=== PATIENT | female | born 1960 | race Caucasian/White ===

== ENCOUNTER 2016-08-09 17:10 | Emergency (ER) | payer OTHER ==
[~2016-08-09] VITALS: Ht 165.1 cm; Wt 74.4 kg
[~2016-08-09 17:10] MED LIST: BUPR100T13 PO; CLON2TAB4 PO; DULO60CA41 PO; LEVO200T8 PO; QUET50TA13 PO; SULF1TAB48 PO; TRAZ-126 PO
[2016-08-09 18:04] VITALS: BP 98/64; PULSE 101; RESP 18; TEMP 98.4; O2SAT 99
--- NOTE | 2016-08-09 18:04 | NUR ---
CAITY Miranda at bedside for evaluation Addendum: 08/09/16 at 2222 by JOSE RAFAEL Patient evaluated in triage room by Ruth BAINS
--- NOTE | 2016-08-09 18:07 | NUR ---
Pt to bed 7, report given to DEANNE Pham
--- NOTE | 2016-08-09 18:10 | NUR ---
Senior Principal Process Engineer at bedside for blood draw. Patient identified x 2
--- NOTE | 2016-08-09 18:12 | NUR ---
Patient brought to ER by sister C/O suprapubic abdominal pain 02/25. Patient C/O nausea and mild diarrhea with traces of blood. Denies vomiting/constipation. Denies fever. AAOx4, unlabored breathing, normoactive bowel sounds. No signs of acute distress.
[2016-08-09] MEDS ORDERED: ONDANSETRON HCL 4 MG/2 ML VIAL IVP ONE (18:15)
[2016-08-09] MEDS ORDERED: MORPHINE 4 MG/ML INJ. SYRINGE IVP ONE (18:15)
--- NOTE | 2016-08-09 18:15 | NUR ---
# 22 gauge angiocath placed to left hand. Use of asceptic technique. Opsite placed over site. Blood return noted. Flushed with 10 cc of normal saline. No evidence of infiltration noted. Patient tolerated well.
[2016-08-09 18:24] LABS: BASOPHILS % (AUTO) 0.5 % (0.0-2.0); EOSINOPHILS # (AUTO) 0.3 K/uL (0.0-0.4); EOSINOPHILS % (AUTO) 4.1 % (0.0-4.0); HEMATOCRIT 29.3 % (36-48); HEMOGLOBIN 9.6 g/dL (12.0-16.0); LYMPHOCYTES # (AUTO) 2.6 K/uL (1.0-5.5); LYMPHOCYTES % (AUTO) 31.5 % (20.5-51.5); MEAN CORPUSCULAR HEMOGLOBIN 27 pg (27-31); MEAN CORPUSCULAR HGB CONC 33 % (32-36); MEAN CORPUSCULAR VOLUME 83 fL (79.0-98.0); MONOCYTES # (AUTO) 0.6 K/uL (0.0-1.0); MONOCYTES % (AUTO) 7.4 % (1.7-9.3); NEUTROPHILS # (AUTO) 4.8 K/uL (1.8-7.7); NEUTROPHILS % (AUTO) 56.5 % (40.0-70.0); PLATELET COUNT (AUTO) 287 K/uL (130-430); RED BLOOD CELL COUNT(AUTO) 3.52 MIL/uL (4.2-6.2); RED CELL DISTRIBUTION WIDTH 12.5 % (9.0-15.0); WHITE BLOOD COUNT (AUTO) 8.3 K/uL (4.8-10.8)
[2016-08-09 18:38] LABS: BILIRUBIN,URINE NEGATIVE (NEGATIVE); BLOOD, URINE 1+ (NEGATIVE); CLARITY/URINE CLOUDY (CLEAR); COLOR,URINE YELLOW (YELLOW); GLUCOSE,URINE NEGATIVE (NEGATIVE); KETONES,URINE NEGATIVE (NEGATIVE); LEUKOCYTE ESTERASE ,URINE 3+ (NEGATIVE); NITRITE, URINE NEGATIVE (NEGATIVE); PH,URINE 6.5 (5.0-8.0); PROTEIN URINE NEGATIVE (NEGATIVE); UROBILINOGEN,URINE 0.2 (0.2-1.0)
[2016-08-09 18:42] LABS: CALCIUM 9.8 mg/dL (8.4-11.0); CREATININE 0.89 mg/dL (0.55-1.30); POTASSIUM 4.1 mmol/L (3.5-5.1)
[2016-08-09 18:47] LABS: ALBUMIN 2.9 g/dL (3.4-4.8); TOTAL BILIRUBIN 0.3 mg/dL (0.0-1.0)
[2016-08-09 18:53] LABS: BACTERIA,URINE MODERATE /HPF (None Seen); MUCUS,URINE None Seen /LPF (None Seen); URINE AMORPHOUS URATE 2+ /HPF (None Seen)
[2016-08-09] MEDS ORDERED: PIPERACILLIN/TAZO 3.375 GM in NS 50 ML IV ONE (19:15)
[2016-08-09] MEDS ORDERED: HYDROmorphone 1 MG INJ. 1 MG/ML AMPUL IVP ONE ×2 (19:30→20:15)
[2016-08-09] MEDS ORDERED: PIPERACILLIN/TAZOBACTAM 3.375 GM/VIAL (ZOSYN) IV ONE (19:30)
--- NOTE | 2016-08-09 19:39 | NUR ---
Patient resting, no signs of acute distress. Sister at bedside
--- NOTE | 2016-08-09 20:14 | NUR ---
Patient C/O pelvic pain 01/25. ER GROUP EXERCISE CLASS INSTRUCTOR Ruth manzano
[2016-08-09] MEDS ORDERED: NACL 0.9% 1,000 ML IV ONE (21:00)
--- NOTE | 2016-08-09 21:50 | NUR ---
ER NARA Miranda at bedside discussing plan of care with patient and family.
[2016-08-09 22:12] VITALS: BP 105/54; PULSE 87; RESP 18; TEMP 98.2; O2SAT 99
--- NOTE | 2016-08-09 22:12 | NUR ---
Patient given written and verbal discharge instructions and verbalizes understanding. ER CABIN CLEANING SUPERVISOR Ruth discussed with patient the results and treatment provided. Patient in stable condition. ID arm band removed. IV catheter removed intact and dressing applied, no active bleeding. Rx of cipro, tylenol, citrucel given. Patient educated on pain management and to follow up with PMD. Pain Scale 0/10. Opportunity for questions provided and answered.
--- NOTE | 2016-08-12 09:12 | NUR ---
RECEIVED FINAL URINE CULTURE AND PT WAS GIVEN ANTIBIOTICS THAT THEY ARE SENSITIVE TO. PT RECEIVED CIPRO AND TRIMET/SULFA. NO FURTHER ACTIONS NEEDED.
== END 2016-08-09 22:12 | disposition home or self-care (01) ==
LOC: SED 17:10
DX: K92.1 Melena (principal); R10.13 Epigastric pain; R10.30 Lower abdominal pain, unspecified; Z88.5 Allergy status to narcotic agent; Z79.899 Other long term (current) drug therapy
CPT/HCPCS: 36415; 74176; 80053; 81000; 83690; 85025; 87040; 87086; 87186; 96361; 96365; 96375; 96376; 99285; J1170; J2270; J2405; J2543; J7030

== ENCOUNTER 2016-08-22 15:07 | Emergency (ER) | payer OTHER ==
[~2016-08-22] VITALS: Ht 165.1 cm; Wt 74.8 kg
[2016-08-22 15:07] VITALS: BP 103/69; PULSE 98; RESP 19; TEMP 98.2; O2SAT 99
--- NOTE | 2016-08-22 15:07 | NUR ---
BROUGHT BACK TO BED #7 VIA WHEELCHAIR, PT STATES SHE WOULD LIKE TO REMAIN IN THE WHEELCHAIR AND NOT GET INTO THE BED. REPORT GIVEN TO YRN
--- NOTE | 2016-08-22 15:08 | NUR ---
Pt here for c/o left shoulder pain since yesterday and chronic knee pain s/p knee surgery about 5 years ago. Pt states she takes Percocet at home, but is running out of the medication. Addendum: 08/22/16 at 1556 by [email or web address] Pt denied injury to left shoulder at home.
--- NOTE | 2016-08-22 15:09 | NUR ---
Dr. Freed at bedside assess pt.
[2016-08-22] MEDS ORDERED: KETOROLAC TROMETHAMINE 60 MG/2 ML VIAL IM ONE (15:45)
[2016-08-22 15:47] VITALS: BP 110/70; PULSE 96; RESP 19; TEMP 98.2; O2SAT 100
--- NOTE | 2016-08-22 15:49 | NUR ---
Patient given written and verbal discharge instructions and verbalizes understanding. ER MD discussed with patient the results and treatment provided. Patient in stable condition. ID arm band removed. IV c Rx of given. Patient educated on pain management and to follow up with PMD. Opportunity for questions provided and answered.
== END 2016-08-22 15:47 | disposition home or self-care (01) ==
LOC: SED 15:07
DX: G89.29 Other chronic pain (principal); M25.512 Pain in left shoulder; C80.1 Malignant (primary) neoplasm, unspecified; M85.80 Other specified disorders of bone density and structure, unspecified site; Z91.09 Other allergy status, other than to drugs and biological substances
CPT/HCPCS: 96372; 99283; J1885

== ENCOUNTER 2016-08-28 17:35 | Emergency (ER) | payer OTHER ==
[~2016-08-28] VITALS: Ht 165.1 cm; Wt 73.9 kg
[2016-08-28 17:43] VITALS: BP 120/73; PULSE 89; RESP 18; TEMP 98.6; O2SAT 98
--- NOTE | 2016-08-28 19:50 | NUR ---
Patient to ER bed 8 to gown for evaluation. Side rails up. Report received from Deana ALICEA.
--- NOTE | 2016-08-28 19:51 | NUR ---
Pt in bed 8 with c/o shoulder pain , Dr Boateng aware.
--- NOTE | 2016-08-28 19:57 | NUR ---
ER at bedside examining patient.
[2016-08-28] MEDS ORDERED: NACL 0.9% 1,000 ML IV ONE (20:11)
--- NOTE | 2016-08-28 20:14 | NUR ---
AMBULATED TO BR TOLERATED WELL.
[2016-08-28] MEDS ORDERED: PANTOPRAZOLE SODIUM 40 MG/VIAL (PROTONIX) IVP ONE (20:15)
[2016-08-28] MEDS ORDERED: DIPHENHYDRAMINE INJ 50 MG/ML VIAL IVP ONE (20:15)
[2016-08-28] MEDS ORDERED: KETOROLAC TROMETHAMINE 30 MG VIAL IVP ONE (20:15)
[2016-08-28] MEDS ORDERED: MORPHINE 4 MG/ML INJ. SYRINGE IVP ONE (20:15)
--- NOTE | 2016-08-28 20:25 | NUR ---
Urine specimen collected in ER. Results to be given to ER .
[2016-08-28 20:37] LABS: BILIRUBIN,URINE 1+ (NEGATIVE); CLARITY/URINE HAZY (CLEAR); COLOR,URINE YELLOW (YELLOW); GLUCOSE,URINE NEGATIVE (NEGATIVE); KETONES,URINE NEGATIVE (NEGATIVE); LEUKOCYTE ESTERASE ,URINE 2+ (NEGATIVE); NITRITE, URINE NEGATIVE (NEGATIVE); PROTEIN URINE NEGATIVE (NEGATIVE); UROBILINOGEN,URINE 0.2 (0.2-1.0)
--- NOTE | 2016-08-28 20:38 | NUR ---
Patient transported to radiology via gurney, accompanied by configuration technician.
[2016-08-28 20:51] LABS: BLOOD, URINE TRACE (NEGATIVE)
[2016-08-28 20:53] LABS: BARBITURATE, URINE NEGATIVE (NEG <=200); METHAMPHETAMINES SCREEN,URINE NEGATIVE (NEG <=500); URINE AMPHETAMINE NEGATIVE (NEG <=500)
[2016-08-28 20:54] LABS: BENZODIAZEPINE, URINE POSITIVE (NEG <=150); CANNABINOID, URINE NEGATIVE (NEG <=50); COCAINE, URINE NEGATIVE (NEG <=150); OPIATE, URINE NEGATIVE (NEG <=100); PHENCYCLIDINE SCREEN,URINE NEGATIVE (NEG <=25); UR TRICYCLIC ANTIDEPRESSANTS POSITIVE (NEG <=300); URINE METHADONE NEGATIVE (NEG <=200); URINE OXYCODONE SCREEN POSITIVE (NEG <=100); URINE PROPOXYPHENE SCREEN NEGATIVE (NEG <=300)
[2016-08-28 20:57] LABS: BACTERIA,URINE MANY /HPF (None Seen); WBC,URINE 50-80 /HPF (0-3)
[2016-08-28 20:58] LABS: MUCUS,URINE None Seen /LPF (None Seen)
[2016-08-28 20:59] LABS: YEAST,URINE Moderate /HPF (None Seen)
[2016-08-28 21:13] LABS: BASOPHILS % (AUTO) 0.4 % (0.0-2.0); EOSINOPHILS # (AUTO) 0.4 K/uL (0.0-0.4); EOSINOPHILS % (AUTO) 5.3 % (0.0-4.0); HEMATOCRIT 28.8 % (36-48); HEMOGLOBIN 9.3 g/dL (12.0-16.0); LYMPHOCYTES # (AUTO) 2.1 K/uL (1.0-5.5); LYMPHOCYTES % (AUTO) 30.6 % (20.5-51.5); MEAN CORPUSCULAR HEMOGLOBIN 27 pg (27-31); MEAN CORPUSCULAR HGB CONC 32 % (32-36); MEAN CORPUSCULAR VOLUME 85 fL (79.0-98.0); MONOCYTES # (AUTO) 0.5 K/uL (0.0-1.0); NEUTROPHILS # (AUTO) 3.9 K/uL (1.8-7.7); NEUTROPHILS % (AUTO) 56.7 % (40.0-70.0); PLATELET COUNT (AUTO) 278 K/uL (130-430); RED CELL DISTRIBUTION WIDTH 12.8 % (9.0-15.0); WHITE BLOOD COUNT (AUTO) 6.9 K/uL (4.8-10.8)
[2016-08-28] MEDS ORDERED: cefTRIAXone 1 GM IVPB PREMIX 50 ML IV ONE (21:15)
[2016-08-28 21:21] LABS: CALCIUM 9.9 mg/dL (8.4-11.0); CREATININE 0.89 mg/dL (0.55-1.30); POTASSIUM 4.2 mmol/L (3.5-5.1)
[2016-08-28 21:25] LABS: INR 0.9 (0.8-1.2); PROTHROMBIN TIME 10.2 SECS (9.5-12.5)
[2016-08-28 21:27] LABS: ALBUMIN 2.9 g/dL (3.4-4.8); TOTAL BILIRUBIN 0.2 mg/dL (0.0-1.0); TOTAL PROTEIN, SERUM 6.8 g/dL (6.4-8.3)
--- NOTE | 2016-08-28 22:18 | NUR ---
Patient given written and verbal discharge instructions and verbalizes understanding. ER MD discussed with patient the results and treatment provided. Given copies of tests performed in ER. Patient in stable condition. ID arm band removed. IV catheter removed intact and dressing applied, no active bleeding. Rx of bactrim given. Patient educated on pain management and to follow up with PMD. Pain Scale 0/10. Opportunity for questions provided and answered.
[2016-08-28 22:32] VITALS: BP 118/73; PULSE 78; RESP 18; TEMP 98.6; O2SAT 98
== END 2016-08-28 22:32 | disposition home or self-care (01) ==
LOC: SED 17:35
DX: M75.21 Bicipital tendinitis, right shoulder (principal); N39.0 Urinary tract infection, site not specified; D64.9 Anemia, unspecified
CPT/HCPCS: 36415; 70450; 71010; 80053; 80307; 81000; 83690; 85025; 85379; 85610; 85730; 87086; 93005; 96365; 96366; 96375; 99285; C9113; J0696; J1200; J1885; J2270; J7030

== ENCOUNTER 2016-10-16 08:02 | Inpatient (IN) | payer OTHER ==
[~2016-10-16] VITALS: Ht 165.1 cm; Wt 67.6 kg
[2016-10-16 08:02] VITALS: BP 163/99; PULSE 113; RESP 18; TEMP 98.4; O2SAT 97
--- NOTE | 2016-10-16 08:02 | NUR ---
BROUGHT BACK TO BED #8 VIA WHEELCHAIR, PLACED IN BED #8 AND TRIAGED. WILL ASSUME CARE
--- NOTE | 2016-10-16 08:07 | NUR ---
PT STATES IT IS BETTER FOR HER TO STAY IN WHEELCHAIR SINCE SHE IS UNABLE TO WALK. DAUGHTER AT BEDSIDE.
--- NOTE | 2016-10-16 08:22 | NUR ---
DR BOWER AT BEDSIDE FOR EVALUATION
[2016-10-16] MEDS ORDERED: ONDANSETRON HCL 4 MG/2 ML VIAL IM ONE (08:30)
[2016-10-16] MEDS ORDERED: HYDROmorphone 1 MG INJ. 1 MG/ML AMPUL IM ONE (08:30)
--- NOTE | 2016-10-16 08:59 | NUR ---
PT SLEEPING QUIETLY, NO CHANGES.
--- NOTE | 2016-10-16 09:31 | NUR ---
DR BOWER AT BEDSIDE FOR RE-EVALUATION
[2016-10-16 10:10] LABS: BASOPHILS % (AUTO) 0.3 % (0.0-2.0); HEMOGLOBIN 12.2 g/dL (12.0-16.0); LYMPHOCYTES # (AUTO) 1.5 K/uL (1.0-5.5); LYMPHOCYTES % (AUTO) 12.5 % (20.5-51.5); MEAN CORPUSCULAR HEMOGLOBIN 28 pg (27-31); MEAN CORPUSCULAR HGB CONC 33 % (32-36); MEAN CORPUSCULAR VOLUME 85 fL (79.0-98.0); MONOCYTES # (AUTO) 0.5 K/uL (0.0-1.0); MONOCYTES % (AUTO) 3.9 % (1.7-9.3); NEUTROPHILS # (AUTO) 10.3 K/uL (1.8-7.7); NEUTROPHILS % (AUTO) 83.3 % (40.0-70.0); PLATELET COUNT (AUTO) 352 K/uL (130-430); RED BLOOD CELL COUNT(AUTO) 4.34 MIL/uL (4.2-6.2); RED CELL DISTRIBUTION WIDTH 15.4 % (9.0-15.0); WHITE BLOOD COUNT (AUTO) 12.3 K/uL (4.8-10.8)
--- NOTE | 2016-10-16 10:10 | NUR ---
PT ASSISTED UP TO RESTROOM, FAMILY AT BEDSIDE.
[2016-10-16] MEDS ORDERED: HYDROcodone/ACETAMIN 10-325 MG TAB PO PRN (10:15)
[2016-10-16] MEDS ORDERED: HYDROmorphone 2 MG/ML VIAL IVP PRN (10:15)
[2016-10-16] MEDS ORDERED: ONDANSETRON HCL 4 MG/2 ML VIAL IVP PRN ×2 (10:15→14:30)
[2016-10-16 10:19] LABS: CALCIUM 10.2 mg/dL (8.4-11.0); CREATININE 0.84 mg/dL (0.55-1.30); POTASSIUM 3.8 mmol/L (3.5-5.1)
[2016-10-16 10:24] LABS: ALBUMIN 3.8 g/dL (3.4-4.8); TOTAL BILIRUBIN 0.3 mg/dL (0.0-1.0)
--- NOTE | 2016-10-16 10:47 | NUR ---
CALL PANEL CHANGE AND PT WILL NOW BE ADMITTED UNDER DR VERDE. AWAITING ORDERS
[2016-10-16 10:53] LABS: BILIRUBIN,URINE NEGATIVE (NEGATIVE); BLOOD, URINE 1+ (NEGATIVE); CLARITY/URINE CLEAR (CLEAR); COLOR,URINE YELLOW (YELLOW); GLUCOSE,URINE NEGATIVE (NEGATIVE); KETONES,URINE NEGATIVE (NEGATIVE); LEUKOCYTE ESTERASE ,URINE 1+ (NEGATIVE); NITRITE, URINE NEGATIVE (NEGATIVE); PROTEIN URINE NEGATIVE (NEGATIVE); UROBILINOGEN,URINE 0.2 (0.2-1.0)
--- NOTE | 2016-10-16 11:04 | NUR ---
RECEIVED ADMITTING ORDERS FROM DR VERDE
[2016-10-16 11:05] LABS: BACTERIA,URINE FEW /HPF (None Seen); MUCUS,URINE 1+ /LPF (None Seen)
--- NOTE | 2016-10-16 11:15 | NUR ---
Patient will be admitted to care of DR VERDE. Admitted to MED SURG unit. Will go to room 134-A. Belongings list completed. Summary report printed. Report will be given at bedside.
--- NOTE | 2016-10-16 11:23 | NUR ---
TAKEN TO ROOM 134-A VIA WHEELCHAIR BY DEANNE BEARD
--- NOTE | 2016-10-16 11:28 | NUR ---
ADMISSION NOTE: Received patient from ER via sisi, received report from Misty ALICEA. Patient admitted with diagnosis of Intractable Back Pain. Patient oriented to hospital routine, call light, toileting and safety-patient verbalized understanding.
[2016-10-16 11:30] VITALS: BP 144/77; PULSE 83; RESP 18; TEMP 97.9; O2SAT 100
--- NOTE | 2016-10-16 11:35 | NUR ---
ADMISSION Pt A/O. C/O 03/27 back pain. Pt states that she has had this pain/problem for past 20 years...HL to RH flushes well...Call light/phone w/in reach...Will review and carry out orders...Awaiting ...Will cont to monitor
[2016-10-16 11:39] VITALS: BP 144/77; PULSE 83; RESP 18; TEMP 97.9; O2SAT 100
--- NOTE | 2016-10-16 14:15 | NUR ---
PT C/O BACK PAIN AND NAUSEA..DR VERDE WILL BE PAGED
[2016-10-16] MEDS ORDERED: HYDROmorphone 1 MG INJ. 1 MG/ML AMPUL IVP PRN ×2 (14:30→20:15)
--- NOTE | 2016-10-16 14:30 | NUR ---
COVERING NURSE TO MEDICATE WITH IV PAIN MEDICATION AND ANTIEMETIC
--- NOTE | 2016-10-16 16:30 | NUR ---
PT WITH 5/10 PAIN.PT REFUSES PAIN MEDICATION.. PAIN IS TOLERABLE FOR PT...WILL CONT TO MONITOR
--- NOTE | 2016-10-16 17:06 | NUR ---
Cardio consult: for Dr. Palacios, regarding abnormal ekg, ordered by Dr. Adam, spoke with Ema.
--- NOTE | 2016-10-16 17:16 | NUR ---
Consult: for Dr. Matias (Dr. Holt is covering), ordered by Dr. Adam for sciatica. Nurse, Gi, spoke on phone with Dr. Troy.
--- NOTE | 2016-10-16 17:30 | NUR ---
PT REQUESTING PAIN MEDICATION FOR 7/10 PAIN COVERING NURSE TO MEDICATE
[2016-10-16] MEDS: KETOROLAC TROMETHAMINE 15 MG VIAL IVP PRN (17:41)
--- NOTE | 2016-10-16 19:04 | NUR ---
DR VERDE AT BEDSIDE
--- NOTE | 2016-10-16 19:55 | NUR ---
Initial Notes Patient alert and oriented, able to make needs known. Patient denies pain at this time. No SOB noted, on room air. IV site patent, flushes well. No c/o nausea/vomiting at this time. Able to reposition self in bed. Goal of pain management, ortho stability and safety this shift. Call light within reach. Will continue to monitor.
[2016-10-16] MEDS ORDERED: cefTRIAXone 1 GM IVPB PREMIX 50 ML IV ONE (20:54)
[2016-10-16] MEDS ORDERED: cefTRIAXone 1 GM in D5W 50 ML IV SCH (21:00)
[2016-10-16] MEDS: LACTOBACILLUS RHAMNOSUS GG 1 CAP CAPSULE PO SCH (21:18)
[2016-10-16] MEDS: SULFAMETHOXAZOLE/TRIMETHOPR DS 1 TABLET PO SCH (21:18)
[2016-10-16 21:31] VITALS: BP 145/89; PULSE 71; RESP 18; TEMP 97.4; O2SAT 96
--- NOTE | 2016-10-16 22:15 | NUR ---
Notes Patient sleeping at this time. No s/s of pain noted. No SOB noted. IV site patent, flushes well, infusing antibiotics as ordered. Call light within reach. Will continue to monitor.
[2016-10-17] MEDS: KETOROLAC TROMETHAMINE 15 MG VIAL IVP PRN ×2 (00:11→08:02)
--- NOTE | 2016-10-17 00:11 | NUR ---
Notes Patient sleeping at this time. No s/s of pain noted. Afebrile. No SOB noted. IV site patent , flushes well. Call light within reach. Will continue to monitor.
[2016-10-17 00:41] VITALS: BP 136/74; PULSE 74; RESP 20; TEMP 98.4; O2SAT 94
--- NOTE | 2016-10-17 02:38 | NUR ---
Notes Patient sleeping at this time. No s/s of pain noted. No SOB noted. IV site patent, flushes well. Call light within reach. Will continue to monitor.
[2016-10-17] MEDS ORDERED: LEVOTHYROXINE SODIUM 0.1 MG TABLET PO SCH (07:00)
--- NOTE | 2016-10-17 07:15 | NUR ---
Closing Notes Patient denies pain at this time. No SOB noted, on room air. IV site patent, flushes well. No c/o nausea/vomiting at this time. Able to reposition self in bed. Goal of pain management, ortho stability and safety , met. Call light within reach. Will continue to monitor. Addendum: 10/17/16 at 0741 by Agnes Camp RN Patient refused SCD. Aware of risk and benefits.
--- NOTE | 2016-10-17 07:32 | NUR ---
am rounds: patient in the room.awake,alert and oriented x4. report given at bedside. with right hand iv saline lock in placed. no distress.
[2016-10-17 08:00] VITALS: BP 125/70; PULSE 76; RESP 18; TEMP 97.9; O2SAT 98
--- NOTE | 2016-10-17 08:07 | NUR ---
iv meds: c/o lower back and due iv toradol given per request.
[2016-10-17] MEDS: LACTOBACILLUS RHAMNOSUS GG 1 CAP CAPSULE PO SCH (08:18)
[2016-10-17] MEDS: SULFAMETHOXAZOLE/TRIMETHOPR DS 1 TABLET PO SCH (08:19)
[2016-10-17] MEDS ORDERED: traZODone HCL 50 MG TABLET (DESYREL) PO SCH (09:00)
[2016-10-17] MEDS ORDERED: DULoxetine HCL 30 MG CAPSULE.DR (CYMBALTA) PO SCH (09:00)
[2016-10-17] MEDS ORDERED: QUEtiapine FUMARATE 25 MG TABLET PO SCH (09:00)
[2016-10-17] MEDS ORDERED: clonazePAM 0.5 MG TABLET PO SCH (09:00)
[2016-10-17] MEDS ORDERED: buPROPion HCL 100 MG TABLET PO SCH (09:00)
--- NOTE | 2016-10-17 09:49 | NUR ---
DC ORDER: WITH DC ORDERS FROM DR VERDE,CONTINUE ALL HOME MEDS.F/U WITH PCP AND DR NICKERSON SCHEDULED.
[2016-10-17 10:28] VITALS: BP 125/70; PULSE 76; RESP 18; TEMP 97.9; O2SAT 98
--- NOTE | 2016-10-17 10:50 | NUR ---
DC NOTES: TRANSITIONAL CARE DOCUMENTS GIVEN TO PATIENT AND VERBALIZED UNDERSTANDING. IV REMOVED,DRY GAUZE APPLIED,NO BLEEDING NOTED. PERSONAL BELONGINGS SENT HOME WITH THE PATIENT.PATIENT WAS ACCOMPANIED HOME BY HER SISTER IN STABLE CONDITION.
== END 2016-10-17 10:50 | disposition home or self-care (01) | DRG 552 ==
LOC: SED 08:02 → SMU 10:57
PROVIDERS: ADMIT Internal Medicine; ATTEND Internal Medicine
DX: M47.816 Spondylosis without myelopathy or radiculopathy, lumbar region (principal); N39.0 Urinary tract infection, site not specified; F32.9 Major depressive disorder, single episode, unspecified; E03.9 Hypothyroidism, unspecified; M54.30 Sciatica, unspecified side; M47.817 Spondylosis without myelopathy or radiculopathy, lumbosacral region; Z96.652 Presence of left artificial knee joint; G89.4 Chronic pain syndrome; F41.9 Anxiety disorder, unspecified; Z90.710 Acquired absence of both cervix and uterus; Z79.899 Other long term (current) drug therapy; Z88.8 Allergy status to other drugs, medicaments and biological substances
CPT/HCPCS: 36415; 80053; 81000-TC; 85025; 87086; 93005; J0696; J1170; J1885; J2405; J7050; J7060

== ENCOUNTER 2016-11-28 18:19 | Emergency (ER) | payer OTHER ==
[~2016-11-28] VITALS: Ht 165.1 cm; Wt 67.6 kg
[2016-11-28 18:25] VITALS: BP_SYST 126
--- NOTE | 2016-11-28 18:37 | NUR ---
Patient to ER bed 2 to gown for evaluation. Side rails up. Report given to Hazel ALICEA.
--- NOTE | 2016-11-28 18:47 | NUR ---
ER at bedside examining patient.
--- NOTE | 2016-11-28 19:10 | NUR ---
Patient care endorsed to me. Patient in ER C/O abdominal pain 12/25. Patient calm on gurney, no signs of acute distress.
--- NOTE | 2016-11-28 19:12 | NUR ---
TRANSFERRED CARE TO CAR DISTRIBUTOR NURSE.
[2016-11-28 19:28] VITALS: BP_SYST 122
--- NOTE | 2016-11-28 19:28 | NUR ---
Patient given written and verbal discharge instructions and verbalizes understanding. ER MD Bentley discussed with patient the results and treatment provided. Patient in stable condition. ID arm band removed. Patient educated on pain management and to follow up with PMD. Pain Scale 0/10. Opportunity for questions provided and answered.
[2016-11-28] MEDS ORDERED: MAGNESIUM CITRATE 300 ML ORAL SOLUTION PO ONE (19:30)
== END 2016-11-28 19:28 | disposition home or self-care (01) ==
LOC: SED 18:19
DX: K59.00 Constipation, unspecified (principal)
CPT/HCPCS: 74000-TC; 99283

== ENCOUNTER 2016-12-18 10:47 | Emergency (ER) | payer OTHER ==
[~2016-12-18] VITALS: Ht 165.1 cm; Wt 72.6 kg
[2016-12-18 10:47] VITALS: BP_SYST 99
--- NOTE | 2016-12-18 10:47 | NUR ---
ASSISTED TO WHEELCHAIR AND BROUGHT BACK TO BED #8, FRIEND AT BEDSIDE. PLACED IN BED AND TRIAGED. REPORT GIVEN TO SAM
--- NOTE | 2016-12-18 10:55 | NUR ---
Pt presents to ED w/multiple complaints.Pt h/o chronic pain. Back, neck weakness and dizzinees.
--- NOTE | 2016-12-18 11:15 | NUR ---
ER at bedside examining patient.
--- NOTE | 2016-12-18 12:15 | NUR ---
XRAYS DONE AT BEDSIDE. FRIEND AT BEDSIDE GIVING SUPPORT
[2016-12-18] MEDS ORDERED: KETOROLAC TROMETHAMINE 60 MG/2 ML VIAL IM ONE (12:45)
[2016-12-18] MEDS ORDERED: ONDANSETRON 4 MG ODT TAB PO ONE (12:45)
[2016-12-18 12:50] LABS: BASOPHILS % (AUTO) 0.8 % (0.0-2.0); EOSINOPHILS # (AUTO) 0.1 K/uL (0.0-0.4); EOSINOPHILS % (AUTO) 2.6 % (0.0-4.0); HEMATOCRIT 31.9 % (36-48); HEMOGLOBIN 10.4 g/dL (12.0-16.0); LYMPHOCYTES # (AUTO) 1.4 K/uL (1.0-5.5); LYMPHOCYTES % (AUTO) 26.5 % (20.5-51.5); MEAN CORPUSCULAR HEMOGLOBIN 29 pg (27-31); MEAN CORPUSCULAR HGB CONC 33 % (32-36); MEAN CORPUSCULAR VOLUME 89 fL (79.0-98.0); MONOCYTES # (AUTO) 0.2 K/uL (0.0-1.0); MONOCYTES % (AUTO) 4.6 % (1.7-9.3); NEUTROPHILS # (AUTO) 3.6 K/uL (1.8-7.7); NEUTROPHILS % (AUTO) 65.5 % (40.0-70.0); PLATELET COUNT (AUTO) 250 K/uL (130-430); RED BLOOD CELL COUNT(AUTO) 3.58 MIL/uL (4.2-6.2); RED CELL DISTRIBUTION WIDTH 14.4 % (9.0-15.0); WHITE BLOOD COUNT (AUTO) 5.3 K/uL (4.8-10.8)
[2016-12-18 12:58] LABS: CALCIUM 8.1 mg/dL (8.4-11.0); CREATININE 1.26 mg/dL (0.55-1.30); POTASSIUM 3.5 mmol/L (3.5-5.1); PROTHROMBIN TIME 10.4 SECS (9.5-12.5)
[2016-12-18 13:12] LABS: ALBUMIN 3.3 g/dL (3.4-4.8); TOTAL BILIRUBIN 0.3 mg/dL (0.0-1.0); TOTAL PROTEIN, SERUM 6.8 g/dL (6.4-8.3)
[2016-12-18] MEDS ORDERED: ONDANSETRON HCL 4 MG/2 ML VIAL IVP ONE (13:15)
[2016-12-18] MEDS ORDERED: HYDROmorphone 1 MG INJ. 1 MG/ML AMPUL IVP ONE (13:15)
[2016-12-18] MEDS ORDERED: DIPHENHYDRAMINE INJ 50 MG/ML VIAL IVP ONE (13:15)
[2016-12-18 14:37] LABS: THYROID STIMULATING HORMONE 44.49 uIu/mL (0.34-4.82)
[2016-12-18 14:39] LABS: FREE T4 (FREE THYROXINE) 0.2 ng/dL (0.6-1.6)
[2016-12-18 15:30] VITALS: BP_SYST 110
--- NOTE | 2016-12-18 15:30 | NUR ---
Patient given written and verbal discharge instructions and verbalizes understanding. ER MD discussed with patient the results and treatment provided. Patient in stable condition. ID arm band removed. IV catheter removed intact and dressing applied, no active bleeding. No Rx given. Patient educated on pain management and to follow up with PMD in 2 days. Pain Scale 0/10 Opportunity for questions provided and answered.
== END 2016-12-18 15:30 | disposition home or self-care (01) ==
LOC: SED 10:47
DX: E03.9 Hypothyroidism, unspecified (principal); M54.9 Dorsalgia, unspecified; R53.1 Weakness; R42 Dizziness and giddiness; Z79.899 Other long term (current) drug therapy
CPT/HCPCS: 36415; 74000; 80053; 83690; 84439; 84443; 84484; 85025; 85610; 93005; 96372; 96374; 96375; 99285; J1170; J1200; J1885; J2405; Q0162

== ENCOUNTER 2017-01-13 14:47 | Emergency (ER) | payer OTHER ==
[~2017-01-13] VITALS: Ht 165.1 cm; Wt 75.7 kg
[2017-01-13 15:45] VITALS: BP_SYST 141
--- NOTE | 2017-01-13 15:50 | NUR ---
Pt placed to ER waiting room in stable condition.
--- NOTE | 2017-01-13 18:10 | NUR ---
Pt placed to ER bed 03, report given to DEANNE Cooley.
--- NOTE | 2017-01-13 18:11 | NUR ---
Pt here for c/o right shoulder pain 10/10 and bump to area since yesterday. Per pt, pain radiates to back of neck and to mid and lower back. No acute distress noted. Pt sitting on gurney, talking to family member. Will continue to monitor pt.
--- NOTE | 2017-01-13 18:20 | NUR ---
Dr. Kumar at bedside to assess pt.
[2017-01-13] MEDS ORDERED: ONDANSETRON 4 MG ODT TAB PO ONE (18:30)
[2017-01-13] MEDS ORDERED: HYDROmorphone 1 MG INJ. 1 MG/ML AMPUL IM ONE (18:30)
[2017-01-13] MEDS ORDERED: HYDROmorphone 1 MG INJ. 1 MG/ML AMPUL IVP ONE (18:30)
[2017-01-13] MEDS ORDERED: DIPHENHYDRAMINE INJ 50 MG/ML VIAL IM ONE (19:00)
[2017-01-13] MEDS ORDERED: DIPHENHYDRAMINE INJ 50 MG/ML VIAL ONE (19:08)
--- NOTE | 2017-01-13 19:09 | NUR ---
pt stating she is having an allergic reaction stating she feels worse with increase pain, sob, and anxiety. given benadryl 50mg im per Dr. Kumar order placed on cardiac/sao2 monitor with high alarms.
--- NOTE | 2017-01-13 19:20 | NUR ---
Pt denied SOB, states feels better, wants to go home. DR. Kumar re evaluated pt afterwards. No distress noted.
[2017-01-13 19:26] VITALS: BP_SYST 130
--- NOTE | 2017-01-13 19:26 | NUR ---
Patient given written and verbal discharge instructions and verbalizes understanding. ER MD discussed with patient the results and treatment provided. Patient in stable condition. ID arm band removed. Naprosyn 500mg prescription given. Opportunity for questions provided and answered.
== END 2017-01-13 19:26 | disposition home or self-care (01) ==
LOC: SED 14:47
DX: M75.51 Bursitis of right shoulder (principal); R03.0 Elevated blood-pressure reading, without diagnosis of hypertension; M85.80 Other specified disorders of bone density and structure, unspecified site; Z85.9 Personal history of malignant neoplasm, unspecified
CPT/HCPCS: 73030; 96372; 99284; J1170; J1200; Q0162

== ENCOUNTER 2017-01-23 05:20 | Day surgery (SDC) | payer OTHER ==
[~2017-01-23] VITALS: Ht 165.1 cm; Wt 75.7 kg
[~2017-01-23 05:20] MED LIST changes: +HYDR-4100 PO; +LEVO150T PO; +SER100 PO
[2017-01-23] MEDS ORDERED: BACL10TA PO (06:07)
[2017-01-23 07:07] LABS: INR 0.9 (0.8-1.2); PROTHROMBIN TIME 9.9 SECS (9.5-12.5)
[2017-01-23] MEDS ORDERED: MIDAZOLAM HCL 2 MG/2 ML VIAL (VERSED) IVP ONE (07:15)
[2017-01-23] MEDS ORDERED: MEPERIDINE HCL/PF 50 MG/ML AMP IVP PRN (07:15)
[2017-01-23] MEDS ORDERED: MIDAZOLAM HCL 5 MG/5 ML VIAL ONE (07:21)
[2017-01-23] MEDS ORDERED: MEPERIDINE HCL/PF 100 MG/ML AMP ONE (07:21)
[2017-01-23] MEDS ORDERED: ATROPINE SULFATE 0.4 MG/ML VIAL ONE (07:37)
[2017-01-23] MEDS ORDERED: POLYMYXIN 500,000/BACIT.10,000 UNITS in NS IRR 1 L IR ONE (07:38)
[2017-01-23] MEDS ORDERED: LR 1,000 ML IV SCH (08:27)
[2017-01-23] MEDS ORDERED: HYDROmorphone 1 MG INJ. 1 MG/ML AMPUL IVP PRN ×2 (08:30)
[2017-01-23] MEDS ORDERED: HYDROmorphone 2 MG/ML VIAL IVP PRN (08:30)
[2017-01-23] MEDS ORDERED: METOCLOPRAMIDE HCL 10 MG/2 ML VIAL IVP PRN (08:30)
[2017-01-23] MEDS ORDERED: NALOXONE HCL 0.4 MG/ML AMP (NARCAN) ONE (09:18)
[2017-01-23] MEDS ORDERED: HYDROmorphone 2 MG/ML VIAL ONE (11:39)
[2017-01-23 12:18] VITALS: BP_SYST 107
== END 2017-01-23 13:05 | disposition home or self-care (01) ==
LOC: SMU 05:20 → SDS 05:20
PROVIDERS: ATTEND Neurological Surgery
DX: M96.1 Postlaminectomy syndrome, not elsewhere classified (principal); Z98.890 Other specified postprocedural states; F32.9 Major depressive disorder, single episode, unspecified; E03.9 Hypothyroidism, unspecified; I10 Essential (primary) hypertension; G62.9 Polyneuropathy, unspecified; M19.90 Unspecified osteoarthritis, unspecified site; F41.9 Anxiety disorder, unspecified; R00.1 Bradycardia, unspecified
CPT/HCPCS: 36415; 62350; 62362; 76000; 83036; 85610; 85730; 87081 ×2; C1713; C1755; C1772; J0461; J1170; J2175; J2250; J2310; J7120

== ENCOUNTER 2017-02-15 11:30 | Emergency (ER) | payer OTHER ==
[~2017-02-15] VITALS: Ht 165.1 cm; Wt 74.8 kg
[2017-02-15 11:30] VITALS: BP_SYST 125
[~2017-02-15 11:30] MED LIST changes: +BACL10TA PO
--- NOTE | 2017-02-15 11:30 | NUR ---
Pt placed to ER bed 07, to gown, to monitor tech. Pt report given to DEANNE Rodriguez.
--- NOTE | 2017-02-15 11:47 | NUR ---
Pt complains of generalized body pain 10/10 for the past 4 days, pt states is unable to eat, denies fever, n/v or diarrhea. Pt states a pain pump was inserted on 01/23/[address] Matias but no medication has been given through it. Pt was wheeled into the ER, states is unable to ambulate. No other injuries/complaints per pt or noted.
--- NOTE | 2017-02-15 11:53 | NUR ---
ER at bedside examining patient.
[2017-02-15] MEDS ORDERED: NACL 0.9% 1,000 ML IV ONE ×2 (12:00→14:15)
[2017-02-15] MEDS ORDERED: PROCHLORPERAZINE EDISYLATE 10 MG/2 ML VIAL IVP ONE (12:00)
[2017-02-15] MEDS ORDERED: HYDROmorphone 1 MG INJ. 1 MG/ML AMPUL IVP ONE (12:00)
--- NOTE | 2017-02-15 12:20 | NUR ---
Pt was given pain medication and nausea medication, no noted adverse reaction, will continue to monitor.
[2017-02-15 12:31] LABS: BASOPHILS # (AUTO) 0.1 K/uL (0.0-0.2); BASOPHILS % (AUTO) 0.7 % (0.0-2.0); HEMOGLOBIN 11.5 g/dL (12.0-16.0); LYMPHOCYTES # (AUTO) 1.1 K/uL (1.0-5.5); LYMPHOCYTES % (AUTO) 8.8 % (20.5-51.5); MEAN CORPUSCULAR HEMOGLOBIN 28 pg (27-31); MEAN CORPUSCULAR HGB CONC 32 % (32-36); MEAN CORPUSCULAR VOLUME 88 fL (79.0-98.0); MONOCYTES # (AUTO) 0.4 K/uL (0.0-1.0); MONOCYTES % (AUTO) 3.2 % (1.7-9.3); NEUTROPHILS # (AUTO) 10.4 K/uL (1.8-7.7); NEUTROPHILS % (AUTO) 87.3 % (40.0-70.0); PLATELET COUNT (AUTO) 284 K/uL (130-430); RED BLOOD CELL COUNT(AUTO) 4.07 MIL/uL (4.2-6.2); RED CELL DISTRIBUTION WIDTH 12.3 % (9.0-15.0)
[2017-02-15 12:35] LABS: ANION GAP 9 (5-15); CALCIUM 9.4 mg/dL (8.4-11.0); CHLORIDE 107 mmol/L (98-107); CREATININE 1.16 mg/dL (0.55-1.30); GFR AFRICAN AMERICAN 62 mL/min (>90); GLUCOSE 132 mg/dL (70-99); POTASSIUM 3.7 mmol/L (3.5-5.1); SODIUM SERUM 141 mmol/L (136-145); UREA NITROGEN, BLOOD 21 mg/dL (8-21)
[2017-02-15 12:39] LABS: ALBUMIN 2.9 g/dL (3.4-4.8); ASPARTATE AMINOTRANSFERASE 9 U/L (10-37); TOTAL BILIRUBIN 0.7 mg/dL (0.0-1.0)
[2017-02-15 12:44] LABS: ALCOHOL, BLOOD < 3 mg/dL (<10)
[2017-02-15 12:56] LABS: ALANINE AMINOTRANSFERASE 11 U/L (12-78)
--- NOTE | 2017-02-15 13:30 | NUR ---
Pt is resting comfortably in bed with no noted distress or discomfort.
--- NOTE | 2017-02-15 14:25 | NUR ---
Straight cath inserted for urine, sterile procedure was used and pt tolerated it well
[2017-02-15 14:48] VITALS: BP_SYST 100
--- NOTE | 2017-02-15 14:48 | NUR ---
Patient given written and verbal discharge instructions and verbalizes understanding. ER MD discussed with patient the results and treatment provided. Patient in stable condition. ID arm band removed. IV catheter removed intact and dressing applied, no active bleeding. No Rx given, family refused prescription for pain medication, states will not help pt, Dr. Rascon is aware. Patient educated on pain management and to follow up with PMD. Pain Scale 3. Dr. Rascon is aware, pain medication was given here. Opportunity for questions provided and answered.
== END 2017-02-15 14:48 | disposition home or self-care (01) ==
LOC: SED 11:30
DX: M54.2 Cervicalgia (principal); M54.9 Dorsalgia, unspecified; G89.29 Other chronic pain; R32 Unspecified urinary incontinence
CPT/HCPCS: 36415; 70450; 71010; 80053; 84484; 85025; 93005; 96361; 96374; 96375; 99285; G0482; J0780; J1170; J7030

== ENCOUNTER 2017-05-23 11:53 | Emergency (ER) | payer OTHER ==
[~2017-05-23] VITALS: Ht 165.1 cm; Wt 66.7 kg
[2017-05-23 12:00] VITALS: BP_SYST 119
[2017-05-23 12:44] VITALS: BP_SYST 121
== END 2017-05-23 12:26 | disposition home or self-care (01) ==
LOC: SED 11:53
DX: J06.9 Acute upper respiratory infection, unspecified (principal); Z79.899 Other long term (current) drug therapy
CPT/HCPCS: 99283

== ENCOUNTER 2017-06-12 09:10 | Emergency (ER) | payer OTHER ==
[~2017-06-12] VITALS: Ht 165.1 cm; Wt 62.1 kg
[2017-06-12 09:20] VITALS: BP_SYST 109
--- NOTE | 2017-06-12 09:27 | NUR ---
Patient to ER bed 05 to gown for evaluation. Side rails up. Report given to Devin.
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
--- NOTE | 2017-06-12 09:45 | NUR ---
ER Dr. Tilley at bedside examining patient.
[2017-06-12] MEDS ORDERED: MORPHINE 4 MG/ML INJ. SYRINGE IM ONE (10:15)
[2017-06-12] MEDS ORDERED: clonazePAM 0.5 MG TABLET PO ONE (10:15)
--- NOTE | 2017-06-12 10:19 | NUR ---
Pt went to radiology in stable condition.
[2017-06-12] MEDS ORDERED: MORPHINE SULFATE 10 MG/ML VIAL ONE (10:21)
[2017-06-12] MEDS ORDERED: MORPHINE SULFATE 10 MG/ML VIAL IM ONE (10:30)
--- NOTE | 2017-06-12 10:35 | NUR ---
Pt returned from radiology in stable condition.
--- NOTE | 2017-06-12 10:38 | NUR ---
Pt was given medications, pt tolerated well. No adverse reaction, will continue to monitor.
[2017-06-12 11:45] VITALS: BP_SYST 112
--- NOTE | 2017-06-12 11:45 | NUR ---
Patient given written and verbal discharge instructions and verbalizes understanding. ER MD discussed with patient the results and treatment provided. Patient in stable condition. ID arm band removed. Rx of Ativan given. Patient educated on pain management and to follow up with PMD. Pain Scale 2. Opportunity for questions provided and answered.
== END 2017-06-12 11:45 | disposition home or self-care (01) ==
LOC: SED 09:10
DX: S16.1XXA Strain of muscle, fascia and tendon at neck level, initial encounter (principal); F41.9 Anxiety disorder, unspecified; R51 Headache; G89.29 Other chronic pain; Z79.899 Other long term (current) drug therapy; V43.52XA Car driver injured in collision with other type car in traffic accident, initial encounter; Y93.89 Activity, other specified; Y92.410 Unspecified street and highway as the place of occurrence of the external cause; Y99.8 Other external cause status
CPT/HCPCS: 70450; 72110; 72125; 96372; 99284; J2270

== ENCOUNTER 2018-05-12 12:16 | Emergency (ER) | payer OTHER, MEDICAID ==
[~2018-05-12] VITALS: Ht 165.1 cm; Wt 89.8 kg
[~2018-05-12 12:16] MED LIST changes: +CLON2TAB11 PO; -CLON2TAB4 PO; +QUET50TA PO; -QUET50TA13 PO
[2018-05-12 12:49] VITALS: BP_SYST 126
--- NOTE | 2018-05-12 12:57 | NUR ---
Patient to ER bed 06 to gown for evaluation. Side rails up. Report given to russell davenport.
--- NOTE | 2018-05-12 12:58 | NUR ---
patient complains of neck pain post fall.
--- NOTE | 2018-05-12 12:59 | NUR ---
Pt AAOx4 ambulated into ED with cane c/o 03/27 pain to R neck radiating down to R lower back s/p mechanical fall last night. Pt denies KO/N/V/D. Skin pink and dry, breathing even and unlabored. No other injuries/complaints per pt/noted. Will continue to monitor
--- NOTE | 2018-05-12 13:01 | NUR ---
Dr Weiss at bedside for examination
[2018-05-12] MEDS ORDERED: ONDANSETRON 4 MG ODT TAB PO ONE (13:30)
[2018-05-12] MEDS ORDERED: MORPHINE 4 MG/ML INJ. SYRINGE IVP ONE (13:30)
--- NOTE | 2018-05-12 13:35 | NUR ---
Per MD Dr. Weiss, Morphine 4mg IVP is to be given IM.
--- NOTE | 2018-05-12 13:40 | NUR ---
Medication administered. Pt tolerated well. No adverse reactions noted.
[2018-05-12 13:52] VITALS: BP_SYST 129
--- NOTE | 2018-05-12 13:52 | NUR ---
Patient given written and verbal discharge instructions and verbalizes understanding. ER MD Weiss discussed with patient the results and treatment provided. Patient in stable condition. ID arm band removed. No Rx given. Patient educated on pain management and to follow up with PMD. Pain Scale 0. Opportunity for questions provided and answered. Medication side effect fact sheet provided.
== END 2018-05-12 13:52 | disposition home or self-care (01) ==
LOC: SED 12:16
DX: G89.29 Other chronic pain (principal); M54.6 Pain in thoracic spine; Z79.899 Other long term (current) drug therapy; Z96.653 Presence of artificial knee joint, bilateral; W19.XXXA Unspecified fall, initial encounter; Y93.89 Activity, other specified; Y92.89 Other specified places as the place of occurrence of the external cause; Y99.8 Other external cause status
CPT/HCPCS: 96374; 99283; J2270; Q0162